=== PATIENT | male | born 2000 | race Caucasian/White ===

== ENCOUNTER 2019-02-02 11:29 | Emergency (ER) | payer OTHER ==
--- NOTE | 2019-02-02 11:57 | EDM.PDOC ---
ED HPI GENERAL MEDICAL PROBLEM - General Chief Complaint: Laceration Stated Complaint: HIT IN NOSE AT WORK OPEN WOUND Time Seen by Provider: 02/02/19 11:39 Source of Information: Reports: Patient, Other (co-worker) History Limitations: Reports: No Limitations - History of Present Illness INITIAL COMMENTS - FREE TEXT/NARRATIVE: Patient is a 18-year-old male who presents to the ED for evaluation of a nasal injury received at work. The patient states at around 10:30 this morning he was at work, when he got hit in the nose/face with a transfer wire at work. The coworker described this as a type of carbiner type of equipment that snapped off and snapped him in the face. The patient has a laceration to the bridge of his nose between his eyes, and is complaining of a headache. He states his pain is at a 1 or 2 out of 10 today. The wound on the nose is actively bleeding a little bit, and has lots of dried blood down his face. He denies any blurred vision or double vision, he did not lose consciousness or blackout, and he does not have any loose or missing teeth. Patient is alert and oriented, and able to answer questions appropriately, he does not believe that he is up-to-date on his tetanus immunization. He further denies any sort of other facial pain other than on his nose, denies any eye pain, or neck pain. He was wearing a hard hat, and blocked most of the blow with his hardhat and safety glasses. Nose Pain Score (Numeric/FACES): 3 - Related Data Allergies Allergy/AdvReac Type Severity Reaction Status Date / Time No Known Allergies Allergy Verified 02/02/19 11:42 Home Meds: Home Meds cephALEXin [Cephalexin] 500 mg PO QID #28 capsule 02/02/19 [Rx] Past Medical History HEENT History: Reports: None Cardiovascular History: Reports: None Respiratory History: Reports: None Gastrointestinal History: Reports: None Genitourinary History: Reports: None Musculoskeletal History: Reports: None Neurological History: Reports: None Psychiatric History: Reports: None Endocrine/Metabolic History: Reports: None Hematologic History: Reports: None Immunologic History: Reports: None Oncologic (Cancer) History: Reports: None Dermatologic History: Reports: None - Infectious Disease History Infectious Disease History: Reports: None - Past Surgical History Head Surgeries/Procedures: Reports: None Social & Family History - Tobacco Use Smoking Status *Q: Never Smoker - Caffeine Use Caffeine Use: Reports: Soda - Recreational Drug Use Recreational Drug Use: No ED ROS GENERAL - Review of Systems Review Of Systems: See Below Constitutional: Reports: No Symptoms HEENT: Reports: Nose Pain (d/t the laceration). Denies: Dental Pain, Ear Pain, Eye Pain, Sinus Problem, Vertigo, Vision Change Respiratory: Denies: Shortness of Breath Cardiovascular: Denies: Chest Pain Endocrine: Reports: No Symptoms GI/Abdominal: Denies: Abdominal Pain, Nausea, Vomiting : Reports: No Symptoms Musculoskeletal: Reports: No Symptoms Skin: Reports: Wound (curvilinear wound to bridge of nose between eyes.) Neurological: Reports: Headache. Denies: Dizziness, Syncope, Trouble Speaking Psychiatric: Reports: No Symptoms Hematologic/Lymphatic: Reports: No Symptoms ED EXAM, SKIN/RASH Exam: See Below Exam Limited By: No Limitations General Appearance: Alert, WD/WN, No Apparent Distress Eye Exam: Bilateral Eye: EOMI, Normal Inspection, PERRL Ears: Normal External Exam, Normal Canal, Hearing Grossly Normal, Normal TMs Nose: Other (see skin assessment). No: Clear Rhinorrhea Throat/Mouth: Normal Inspection, Normal Lips, Normal Teeth, Normal Gums, Normal Oropharynx (small amount of blood noted on oral mucosa), Normal Voice, No Airway Compromise Head: Normocephalic. No: Facial Swelling, Facial Tenderness Neck: Normal Inspection, Supple, Non-Tender, Full Range of Motion Respiratory/Chest: No Respiratory Distress, Lungs Clear, Normal Breath Sounds, No Accessory Muscle Use, Chest Non-Tender Cardiovascular: Normal Peripheral Pulses, Regular Rate, Rhythm, No Murmur Peripheral Pulses: 3+: Radial (L), Radial (R) Extremities: Normal Inspection, Normal Capillary Refill Neurological: Alert, Oriented, CN II-XII Intact, Normal Cognition, No Motor/ Sensory Deficits Psychiatric: Normal Affect, Normal Mood Skin: Warm, Dry, Normal Color, No Rash, Wound/Incision (8cm curvilinear wound to the bridge of the medial left nose, between the eyes, this is actively bleeding, however just a little bit. There is lots of dried blood down the face extending past the chin.) Location, Skin: Face ED SKIN PROCEDURES - Laceration/Wound Repair Midline Nose Appearance: Irregular (curvilinear to Left medial aspect of nose), Clean Distal NVT: Neuro & Vascular Intact, No Tendon Injury Anesthetic Type: Local Local Anesthesia - Lidocaine (Xylocaine): 1% Plain Local Anesthetic Volume: 3cc Skin Prep: Chlorhexidine (Hibiciens), Saline Saline Irrigation (cc's): 250 Exploration/Debridement/Repair: Wound Explored, In a Bloodless Field, Explored to Base, No Foreign Material Found Closed with: Sutures Lac/Wound length In cm: 8 (curvilinear) Suture Size: 5-0 # of Sutures: 4 Suture Type: Prolene, Interrupted, Simple Sterile Dressing Applied: Nurse Tetanus Status Addressed: Yes Complications: No Progress/Comments: Sutures were placed by RENETAT Rodriguez-student with good technique, the patient tolerated the sutures well. Course - Vital Signs Last Recorded V/S: Last Vital Signs Temp 97.8 F 02/02/19 11:39 Pulse 74 02/02/19 11:39 Resp 16 02/02/19 11:39 BP 138/82 02/02/19 11:39 Pulse Ox 99 02/02/19 11:39 - Orders/Labs/Meds Orders: Active Orders 24 hr Category Date Time Status Vaccines to be Administered [RC] PER UNIT ROUTINE Care 02/02/19 12:06 Active Cervical Spine wo Cont [CT] Stat Exams 02/02/19 11:50 Taken Head wo Cont [CT] Stat Exams 02/02/19 11:49 Taken Maxillofacial w/o CM [Max Facial Sinus wo Cont] [CT] Exams 02/02/19 11:47 Taken Stat Meds: Medications Discontinued Medications Generic Name Dose Route Start Last Admin Trade Name Juan PRN Reason Stop Dose Admin Diphtheria/Tetanus/Acell Pertussis 0.5 ml 02/02/19 12:06 02/02/19 12:39 Adacel IM 02/02/19 12:07 0.5 ml .ONCE ONE Administration Lidocaine HCl 10 ml 02/02/19 13:06 02/02/19 14:15 Xylocaine 1% INJECT 02/02/19 13:07 10 ml ONETIME ONE Administration - Re-Assessments/Exams Free Text/Narrative Re-Assessment/Exam: 02/02/19 12:01 Patient presents to the ED for evaluation of a workplace injury. He does have a curvilinear injury to the bridge of his nose, that will require suturing, I did order a CT of his maxillofacial bones, head, and neck to make sure there are no other bony injuries present. Patient did not have any sort of crepitus noted on the facial exam, and his extraocular movements are intact with no pain noted. He is not requesting anything for pain medication at this time, as he states his pain level is rather low. 02/02/19 12:[address] demonstrates no acute abnormalities. His maxillofacial CT is suspicious for nasal and nasal septum fracture, official radiology read is pending. I could not appreciate any sort of abnormality on the Head CT, official radiology read is pending. I did consult Maxillofacial surgeon at in [place]. Dr. Aiden Jackson is masonry contractor administrator for today and recommends no IV antibiotics, but to close the wound the best I can with sutures,apply mastisol and steri strips, place him on oral keflex 500mg QID x 7 days and have him use bacitracin for 5 days. He will see the patient in consult next week Thursday for possible repair later next week or early the following week. 02/02/19 14:[address] did not demonstrate any acute intracranial abnormalities. The maxillofacial CT demonstrated a comminuted fracture of his nasal bones, with a septal fracture as well. Patient will be sent home with a CD of his images for review by the maxillofacial surgeon. Departure - Departure Time of Disposition: 13:27 Disposition: Home, Self-Care 01 Condition: Fair Clinical Impression: Broken nose Qualifiers: Encounter type: initial encounter Fracture type: open Qualified Code(s): S02.2XXB - Fracture of nasal bones, initial encounter for open fracture Laceration of nose Qualifiers: Encounter type: initial encounter Qualified Code(s): S01.21XA - Laceration without foreign body of nose, initial encounter - Discharge Information *PRESCRIPTION DRUG MONITORING PROGRAM REVIEWED*: No *COPY OF PRESCRIPTION DRUG MONITORING REPORT IN PATIENT THOM: No Prescriptions: cephALEXin [Cephalexin] 500 mg PO QID #28 capsule Instructions: Nasal Fracture, [id number], Facial Laceration, [id number], Sutured Wound Care, [id number] Referrals: PCP,None [Primary Care Provider] - Forms: ED Department Discharge Additional Instructions: You have been evaluated in the ED for your laceration. Sutures will need to stay in until you are evaluated by maxillofacial surgery. Dr. Aiden Jackson was consulted on your case, he recommends that you call his office to get an appointment next week Thursday, so he can have a consultation to be able to fix the broken bones in your nose, and repair the laceration better. His office number is [phone]. He is expecting your call. He notes that he would likely be able to fix a broken bones and repair the laceration some time late next week or early the next week. You were given a CD with your images, please take this with you to your appointment, so the maxillofacial surgeon can review these. You will be given a course of oral antibiotics, Keflex 500 mg 4 times daily for 7 days, please take the whole course of this. You will need to apply bacitracin to the wound, for the next 5 days as well to help guard against infection. This was electronically sent to the [place] pharmacy located [facility]. You may take 600 mg ibuprofen or 500 mg Tylenol for relief every 6 hours as needed. Please keep this area clean and dry, you may cleanse with regular soap and water. No vigorous scrubbing. Please return to ED if your symptoms change or worsen. - My Orders Last 24 Hours: My Active Orders 02/02/19 11:47 Maxillofacial w/o CM [Max Facial Sinus wo Cont] [CT] Stat 02/02/19 11:49 Head wo Cont [CT] Stat 02/02/19 11:50 Cervical Spine wo Cont [CT] Stat 02/02/19 12:06 Vaccines to be Administered [RC] PER UNIT ROUTINE - Assessment/Plan Last 24 Hours: My Active Orders 02/02/19 11:47 Maxillofacial w/o CM [Max Facial Sinus wo Cont] [CT] Stat 02/02/19 11:49 Head wo Cont [CT] Stat 02/02/19 11:50 Cervical Spine wo Cont [CT] Stat 02/02/19 12:06 Vaccines to be Administered [RC] PER UNIT ROUTINE
[2019-02-02] MEDS ORDERED: Diphtheria,Pertussis(Acell),Tetanus Vaccine 0.5 ML Syringe IM ONE (12:06)
[2019-02-02] MEDS ORDERED: Lidocaine 1% 10 ML MDV INJECT ONE (13:06)
--- NOTE | 2019-02-03 08:33 | CT ---
CT facial bones Technique: Multiple axial sections through the facial bones were obtained. Reconstructed coronal and sagittal images were reviewed. Comparison: No prior CT facial bone study is available. Findings: Comminuted nasal bone fracture noted on both sides which shows displacement up to 2-3 mm. Nasal septal fracture is also noted showing angulation. Mild mucosal thickening within the right frontal and ethmoid sinuses is seen most likely relating to the previous trauma. Minimal mucosal thickening is seen inferiorly within the maxillary sinuses which is likely pre-existing. Mastoid sinuses and middle ear cavities are clear. No additional facial bone fracture is noted. Soft tissue swelling seen around the nose. Soft tissue injury is seen within the nose with small amount of soft tissue air. Impression: 1. Comminuted nasal bone fracture as well as nasal septal fracture. Mild displacement seen of the nasal bone fragments up to 2-3 mm. Nasal septal fracture shows angulation. 2. Soft tissue injury within the nose. 3. Paranasal sinus findings as noted above Diagnostic code #3 I agree with preliminary report from [facility], finalized on 02/02/19, 1:45 PM Central Time
--- NOTE | 2019-02-03 08:33 | CT ---
Head CT Technique: Multiple axial sections through the brain were obtained. Intravenous contrast was not utilized. Comparison: No prior intracranial imaging, study correlated with subsequent facial bone CT study. Findings: Ventricles along with basal cisterns and sulci over the convexities are within normal limits for the patient's age. No abnormal parenchymal densities are seen. No evidence of intracranial hemorrhage. No midline shift or mass effect is seen. Mild mucosal thickening is seen within the ethmoid sinuses. Mastoid sinuses are clear. Nasal bone fracture is partially visualized on this exam which will be described on facial bone CT. Small amount of air is noted within the soft tissues of the anterior nose which will also be described on subsequent facial bone study. No acute calvarial abnormality is appreciated. Impression: 1. Findings within and around the nasal bone which will be described in more detail on facial bone exam. 2. No acute intracranial abnormality is seen. No calvarial fracture is identified. Diagnostic code #2 I agree with preliminary report from [facility], finalized on 02/02/19, 1:49 PM Central Time
--- NOTE | 2019-02-03 08:34 | CT ---
CT cervical spine Technique: Multiple axial sections were obtained from above C1 inferiorly to the top of T2. Reconstructed sagittal and coronal images were reviewed. Comparison: No prior cervical spine imaging. Findings: Vertebral body heights and disc spaces are maintained. Vertebral bodies and posterior arches are intact. No fracture is appreciated. No bony central or bony neural foraminal stenosis is seen. No abnormal subluxation is seen on the reconstructed sagittal images. Impression: 1. Nothing acute is appreciated on CT study of the cervical spine. Diagnostic code #1 I agree with preliminary report from [facility], finalized on 02/02/19, 1:40 PM Central Time
== END 2019-02-02 14:45 | disposition home or self-care (01) ==
LOC: JD.ED 11:29 → EDBD 11:29 → JD.ED 14:45
DX: S02.2XXB Fracture of nasal bones, initial encounter for open fracture (principal); Z23 Encounter for immunization; W51.XXXA Accidental striking against or bumped into by another person, initial encounter; Y92.89 Other specified places as the place of occurrence of the external cause; Y99.0 Civilian activity done for income or pay
CPT/HCPCS: 12015; 70450; 70486; 72125; 90471; 90700; 99283; J2001; 12014

== ENCOUNTER 2019-03-17 18:47 | Emergency (ER) | payer OTHER ==
--- NOTE | 2019-03-17 19:11 | EDM.PDOC ---
ED HPI GENERAL MEDICAL PROBLEM - General Chief Complaint: ENT Problem Stated Complaint: NOSE PAIN Time Seen by Provider: 03/17/19 19:04 Source of Information: Reports: Patient History Limitations: Reports: No Limitations - History of Present Illness INITIAL COMMENTS - FREE TEXT/NARRATIVE: The patient presents with nose pain. He got hit in the nose by a broken caribener at work and it cut his nose and broke it. He had the laceration repair here and he had the fractures fixed 2 weeks ago. He want back to work and has been wearing safety glasses and now he has more pain. He had no new injury and he has no new swelling or bleeding. Onset: Gradual Duration: Day(s): Location: Reports: Face Quality: Reports: Sharp Severity: Moderate Improves with: Reports: None Worsens with: Reports: None Associated Symptoms: Reports: No Other Symptoms Nose Pain Score (Numeric/FACES): 8 - Related Data Allergies Allergy/AdvReac Type Severity Reaction Status Date / Time No Known Allergies Allergy Verified 03/17/19 18:57 Home Meds: Home Meds Hydrocodone/Acetaminophen [Hydrocodon-Acetaminophen 5-325] 1 - 2 each PO Q6HR PRN #15 tablet 03/17/19 [Rx] Past Medical History HEENT History: Reports: None Cardiovascular History: Reports: None Respiratory History: Reports: None Gastrointestinal History: Reports: None Genitourinary History: Reports: None Musculoskeletal History: Reports: None Neurological History: Reports: None Psychiatric History: Reports: None Endocrine/Metabolic History: Reports: Obesity/BMI 30+ Hematologic History: Reports: None Immunologic History: Reports: None Oncologic (Cancer) History: Reports: None Dermatologic History: Reports: None - Infectious Disease History Infectious Disease History: Reports: None - Past Surgical History Head Surgeries/Procedures: Reports: None HEENT Surgical History: Reports: Naso-Sinus Surgery Social & Family History - Tobacco Use Smoking Status *Q: Never Smoker - Caffeine Use Caffeine Use: Reports: None - Recreational Drug Use Recreational Drug Use: No ED ROS ENT - Review of Systems Review Of Systems: See Below Constitutional: Reports: No Symptoms HEENT: Reports: Other (Nose pain) Respiratory: Reports: No Symptoms Cardiovascular: Reports: No Symptoms Endocrine: Reports: No Symptoms GI/Abdominal: Reports: No Symptoms : Reports: No Symptoms Musculoskeletal: Reports: No Symptoms ED EXAM, ENT - Physical Exam Exam: See Below Exam Limited By: No Limitations General Appearance: Alert, No Apparent Distress Ears: Normal External Exam Nose: Other (Healed laceration and swelling and there is no bleeding or swelling in the nostrils) Mouth/Throat: Normal Inspection Head: Atraumatic, Normocephalic Neck: Normal Inspection Respiratory/Chest: No Respiratory Distress Course - Vital Signs Last Recorded V/S: Last Vital Signs Temp 98.2 F 03/17/19 18:53 Pulse 91 03/17/19 18:53 Resp 16 03/17/19 18:53 BP 132/86 03/17/19 18:53 Pulse Ox 98 03/17/19 18:53 Departure - Departure Time of Disposition: 19:15 Disposition: Home, Self-Care 01 Condition: Good Clinical Impression: Nose pain - Discharge Information *PRESCRIPTION DRUG MONITORING PROGRAM REVIEWED*: No *COPY OF PRESCRIPTION DRUG MONITORING REPORT IN PATIENT THOM: No Prescriptions: Hydrocodone/Acetaminophen [Hydrocodon-Acetaminophen 5-325] 1 - 2 each PO Q6HR PRN #15 tablet PRN Reason: Pain Referrals: PCP,None [Primary Care Provider] - Forms: ED Department Discharge Additional Instructions: Ice your nose for 15 minutes 3 times per day for 2 days. Take motrin or tylenol for pain. If that does not help try the hydrocodone for pain. If you are not better in a few days follow up with your surgeon.
== END 2019-03-17 19:28 | disposition home or self-care (01) ==
LOC: JD.ED 18:47
DX: J34.89 Other specified disorders of nose and nasal sinuses (principal); E66.9 Obesity, unspecified; Z68.32 Body mass index [BMI] 32.0-32.9, adult
CPT/HCPCS: 99283

== ENCOUNTER 2019-09-23 11:45 | Emergency (ER) | payer OTHER ==
[2019-09-23] MEDS ORDERED: HYDROmorphone 1 MG/ML Syringe IM ONE (12:12)
--- NOTE | 2019-09-23 12:21 | EDM.PDOC ---
ED HPI GENERAL MEDICAL PROBLEM - General Chief Complaint: ENT Problem Stated Complaint: NOSE SURG WED NEEDS PAIN MEDS & BLOOD CLOTS REMOVE Time Seen by Provider: 09/23/19 12:05 Source of Information: Reports: Patient, RN Notes Reviewed History Limitations: Reports: No Limitations - History of Present Illness INITIAL COMMENTS - FREE TEXT/NARRATIVE: Patient is a 18 year old male who presents to the ED for issues regarding his recent rhinoplasty. He states that he had a rhinoplasty performed by Dr. Mao Malloy, ENT in [facility]; this was done Thursday09/21/2019. Patient states that the surgery seem to have went well, he was discharged home with general recommendations and some pain medications. Patient states that the pain is been pretty exquisite and he has subsequently run out of pain medications at about midnight last night. He is also appreciating some clot- like material in his nose, and was told by the ENT that if he developed any of these clots in the nose to come to the ER to have these taken out. Patient states is very hard to breathe through his nose, and feels as if there are clots present. He can feel blood dripping down the back of his throat. He denies any other sick like symptoms. Nose Pain Score (Numeric/FACES): 9 - Related Data Allergies Allergy/AdvReac Type Severity Reaction Status Date / Time fentanyl Allergy Severe Respiratory Verified 09/23/19 11:57 Depression Home Meds: Home Meds Hydrocodone/Acetaminophen [Hydrocodone-Acetamin 10-325 mg] 1 each PO Q4H #30 tablet 09/23/19 [Rx] Past Medical History HEENT History: Reports: None Cardiovascular History: Reports: None Respiratory History: Reports: None Gastrointestinal History: Reports: None Genitourinary History: Reports: None Musculoskeletal History: Reports: None Neurological History: Reports: None Psychiatric History: Reports: None Endocrine/Metabolic History: Reports: Obesity/BMI 30+ Hematologic History: Reports: None Immunologic History: Reports: None Oncologic (Cancer) History: Reports: None Dermatologic History: Reports: None - Infectious Disease History Infectious Disease History: Reports: None - Past Surgical History Head Surgeries/Procedures: Reports: None HEENT Surgical History: Reports: Naso-Sinus Surgery Social & Family History - Family History Family Medical History: Noncontributory - Tobacco Use Smoking Status *Q: Current Every Day Smoker Years of Tobacco use: 3 Packs/Tins Daily: 1 - Caffeine Use Caffeine Use: Reports: Soda - Recreational Drug Use Recreational Drug Use: No ED ROS ENT - Review of Systems Review Of Systems: Comprehensive ROS is negative, except as noted in HPI. ED EXAM, ENT - Physical Exam Exam: See Below Exam Limited By: No Limitations General Appearance: Alert, WD/WN, No Apparent Distress (pt is unable to breathe through nose.) Nose: Nasal Swelling, Dried Blood (in bilateral nares,). No: Nasal Discharge, Nasal Ecchymosis Mouth/Throat: Normal Inspection, Normal Gums, Normal Lips, Normal Oropharynx ( scant blood in oropharynx.), Normal Teeth Head: Atraumatic, Normocephalic Respiratory/Chest: No Respiratory Distress, Lungs Clear, Normal Breath Sounds, No Accessory Muscle Use, Chest Non-Tender Cardiovascular: Normal Peripheral Pulses, Regular Rate, Rhythm, No Murmur Extremities: Normal Inspection, Normal Capillary Refill Neurological: Alert, Oriented, Normal Cognition, No Motor/Sensory Deficits Psychiatric: Normal Affect, Normal Mood Skin: Warm, Dry, Intact, Normal Color, No Rash Course - Vital Signs Last Recorded V/S: Last Vital Signs Temp 98.0 F 09/23/19 11:54 Pulse 107 H 09/23/19 11:54 Resp 18 09/23/19 11:54 BP 136/82 09/23/19 11:54 Pulse Ox 99 09/23/19 11:54 - Orders/Labs/Meds Meds: Medications Discontinued Medications Generic Name Dose Route Start Last Admin Trade Name Freq PRN Reason Stop Dose Admin Hydromorphone HCl 1 mg 09/23/19 12:12 09/23/19 12:23 Dilaudid IM 09/23/19 12:13 1 mg ONETIME ONE Administration - Re-Assessments/Exams Free Text/Narrative Re-Assessment/Exam: 09/23/19 12:24 Patient presents to the ED for the evaluation of issues regarding his recent rhinoplasty. I was able to contact Dr. Malloy directly, and he wishes to not have the area irrigated at all, he states that pain medication for the patient is okay, and does recommend that the patient keep up with the saline rinses 4 times a day, and he can try ice to the bridge of the nose to help relieve some of the swelling. Dr. Malloy states that the swelling can take a few days to relax, so the patient will likely not be able to breathe out of his nose much for the next few days. I will relay this information to the patient and have him follow this general recommendations given some extra pain medications as he ran out. 09/23/19 12:39 Patient did receive relief from the Dilaudid that was ordered. Will be discharged home with pain medications and recommendations per his ENT. Departure - Departure Time of Disposition: 12:39 Disposition: Home, Self-Care 01 Condition: Good Clinical Impression: Status post rhinoplasty - Discharge Information *PRESCRIPTION DRUG MONITORING PROGRAM REVIEWED*: Yes *COPY OF PRESCRIPTION DRUG MONITORING REPORT IN PATIENT THOM: No Prescriptions: Hydrocodone/Acetaminophen [Hydrocodone-Acetamin 10-325 mg] 1 each PO Q4H #30 tablet Referrals: PCP,None [Primary Care Provider] - Forms: ED Department Discharge Additional Instructions: You were evaluated in the ER regarding your nasal pain and congestion after your rhinoplasty on Thursday. Your ENT, Dr. Malloy was contacted and he recommends not irrigating her nose in the ER. He does state that you should continue to do your saline rinses 4 times a day as previously directed, and ice packing to the area to see if this does not also help some of the congestion/pain. You have been given a prescription for pain medication, this will be hydrocodone /acetaminophen 10/325, please use 1 tab every 4-6 hours as needed for further pain relief. You were given enough for roughly 1 week. This was electronically prescribed to the [facility] pharmacy located on [address]. Please take as few of these as possible to help achieve adequate pain relief, you might want to try ibuprofen, 600 mg every 6 hours in conjunction with this to also help relieve some of the inflammation; unless told specifically not to take any NSAIDs by your ENT. Please return to the ER at any time if symptoms change or worsen. Sepsis Event Note (ED) - Evaluation Sepsis Screening Result: No Definite Risk - Focused Exam Vital Signs: Vital Signs Temp Pulse Resp BP Pulse Ox 09/23/19 11:54 98.0 F 107 H 18 136/82 99
== END 2019-09-23 13:08 | disposition home or self-care (01) ==
LOC: JD.ED 11:45
DX: J34.89 Other specified disorders of nose and nasal sinuses (principal); Z41.1 Encounter for cosmetic surgery; E66.9 Obesity, unspecified; Z68.36 Body mass index [BMI] 36.0-36.9, adult; F17.210 Nicotine dependence, cigarettes, uncomplicated; Z88.8 Allergy status to other drugs, medicaments and biological substances
CPT/HCPCS: 96372; 99283; J1170

== ENCOUNTER 2019-09-24 19:59 | Emergency (ER) | payer OTHER ==
--- NOTE | 2019-09-24 20:36 | EDM.PDOC ---
ED HPI GENERAL MEDICAL PROBLEM - General Chief Complaint: ENT Problem Stated Complaint: LT SIDE NOSE PAIN - POST OP Time Seen by Provider: 09/24/19 20:18 Source of Information: Reports: Patient, Old Records, RN Notes Reviewed History Limitations: Reports: No Limitations - History of Present Illness INITIAL COMMENTS - FREE TEXT/NARRATIVE: Patient is a 18-year-old male who presents to the ED for the evaluation of his ongoing issues after his rhinoplasty. Patient was evaluated most recently in this ER by myself yesterday, for increasing pain in the nose and increased congestion and blood clots. The pain medicine given to him yesterday did seem to help the pain and he was able to do the sinus rinses as directed by his ENT, Dr. Mao Malloy. Patient had a rhinoplasty done on September 21, 2019 in [facility]. Patient notes today however he did appreciate some white-denny material coming out of the left side of his nose along with purulent drainage. He notes this is not happen before, and was worried that there might be a bacterial infection. He did not try to get much of the tissue out for fear of ruining part of the rhinoplasty. He does note some mild pain/pressure on the left maxillary sinus along with this. He denies any pain or pressure in his face elsewhere. He denies any fevers or chills, and denies any other sick-like symptoms, cough/shortness of breath, chest pain, nausea/vomiting/diarrhea. Patient states that the pain is much better with the hydrocodone medication. He has also been using ice packs to the area to relieve some swelling. Nose Pain Score (Numeric/FACES): 5 - Related Data Allergies Allergy/AdvReac Type Severity Reaction Status Date / Time fentanyl Allergy Severe Respiratory Verified 09/23/19 11:57 Depression Home Meds: Home Meds Hydrocodone/Acetaminophen [Hydrocodone-Acetamin 10-325 mg] 1 each PO Q4H #30 tablet 09/23/19 [Rx] Amoxicillin/Clavulanate K [Augmentin 875-125 MG] 1 tab PO BID #14 tablet [Rx] Past Medical History HEENT History: Reports: None Cardiovascular History: Reports: None Respiratory History: Reports: None Gastrointestinal History: Reports: None Genitourinary History: Reports: None Musculoskeletal History: Reports: None Neurological History: Reports: None Psychiatric History: Reports: None Endocrine/Metabolic History: Reports: Obesity/BMI 30+ Hematologic History: Reports: None Immunologic History: Reports: None Oncologic (Cancer) History: Reports: None Dermatologic History: Reports: None - Infectious Disease History Infectious Disease History: Reports: None - Past Surgical History Head Surgeries/Procedures: Reports: None HEENT Surgical History: Reports: Naso-Sinus Surgery Social & Family History - Family History Family Medical History: Noncontributory - Tobacco Use Smoking Status *Q: Current Every Day Smoker Years of Tobacco use: 1 Packs/Tins Daily: 0.1 - Caffeine Use Caffeine Use: Reports: Soda - Recreational Drug Use Recreational Drug Use: No ED ROS ENT - Review of Systems Review Of Systems: Comprehensive ROS is negative, except as noted in HPI. ED EXAM, ENT - Physical Exam Exam: See Below Exam Limited By: No Limitations General Appearance: Alert, WD/WN, No Apparent Distress Nose: Nasal Discharge (mucoid/purulent/blood tinged discharge coming from the left nare only.), Nasal Swelling (bilateral nasal swelling), Nasal Tenderness ( to left side of nose, and over the left maxillary sinus), Dried Blood (in right nare) Mouth/Throat: Normal Inspection, Normal Gums, Normal Lips, Normal Oropharynx, Normal Teeth Head: Atraumatic, Normocephalic Respiratory/Chest: No Respiratory Distress, Lungs Clear, Normal Breath Sounds, No Accessory Muscle Use, Chest Non-Tender Cardiovascular: Normal Peripheral Pulses, Regular Rate, Rhythm, No Murmur Skin: Warm, Dry, Intact, Normal Color, No Rash Course - Vital Signs Last Recorded V/S: Last Vital Signs Temp 98.1 F 09/24/19 20:20 Pulse 88 09/24/19 20:20 Resp 20 09/24/19 20:20 BP 132/71 09/24/19 20:20 Pulse Ox 98 09/24/19 20:20 - Re-Assessments/Exams Free Text/Narrative Re-Assessment/Exam: 09/24/19 20:34 Patient presents to the ED for evaluation of his ongoing issues after his rhinoplasty done this last Thursday. There is quite a bit of mucoid/purulent/ bloody drainage coming from the left nare, along with his associated maxillary tenderness, I do believe he could have an acute bacterial infection, causing some of the issues and drainage. He will be started on Augmentin, 1 tab twice daily for the next 7 days. I will have him call Dr. Malloy's office for follow -up on Thursday, and ask if his appointment can be moved to a sooner date than October 10, or if he can be seen by a cohort in [place] in a more timely fashion. Departure - Departure Time of Disposition: 20:36 Disposition: Home, Self-Care 01 Condition: Good Clinical Impression: Status post rhinoplasty, Left maxillary sinusitis - Discharge Information *PRESCRIPTION DRUG MONITORING PROGRAM REVIEWED*: No *COPY OF PRESCRIPTION DRUG MONITORING REPORT IN PATIENT THOM: No Prescriptions: Amoxicillin/Clavulanate K [Augmentin 875-125 MG] 1 tab PO BID #14 tablet Instructions: Sinusitis, Adult, [id number] Referrals: PCP,None [Primary Care Provider] - Additional Instructions: You were evaluated in the ER today regarding your ongoing issues after your rhinoplasty. Please continue to take the pain medications as prescribed, and also continue to do the saline rinses as directed by your ENT provider, Dr. Malloy. This should be done 4 times daily. You have been prescribed an antibiotic, Augmentin, for a suspected left maxillary sinusitis. This is due to the sinus tenderness, and drainage coming from the left nare. Highly and strongly recommend that you follow-up with your ENT on Thursday, and try to get your appointment moved sooner so he can evaluate you in a more timely fashion rather than [address]. You might want to suggest if you can be seen by 1 of his cohorts in [place] if he would deem this appropriate you could be re-evaluated sooner. Please return to the ER at any time if symptoms should change or worsen. Sepsis Event Note (ED) - Evaluation Sepsis Screening Result: No Definite Risk - Focused Exam Vital Signs: Vital Signs Temp Pulse Resp BP Pulse Ox 09/24/19 20:20 98.1 F 88 20 132/71 98
== END 2019-09-24 21:00 | disposition home or self-care (01) ==
LOC: JD.ED 19:59
DX: J32.0 Chronic maxillary sinusitis (principal); E66.9 Obesity, unspecified; F17.210 Nicotine dependence, cigarettes, uncomplicated; Z68.36 Body mass index [BMI] 36.0-36.9, adult; Z98.1 Arthrodesis status; Z88.4 Allergy status to anesthetic agent; Z98.890 Other specified postprocedural states
CPT/HCPCS: 99282; 99283